=== PATIENT | male | born 1935 | race Caucasian/White ===

== ENCOUNTER 2016-11-29 08:16 | Inpatient (IN) ==
--- NOTE | 2016-11-26 23:23 | Discharge Summary ---
<Hailey Licea Ramos - Last Filed: 11/26/16 23:19> Date of Encounter: 11/26/16 - Discharge Diagnosis (1) Status post total replacement of right shoulder Priority: Primary Status: Acute (2) Rotator cuff tear arthropathy of right shoulder Priority: Primary Status: Acute (3) HTN (hypertension) Priority: Secondary Status: Chronic Qualifiers: Hypertension type: essential hypertension (4) HLD (hyperlipidemia) Priority: Secondary Status: Chronic Qualifiers: Hyperlipidemia type: pure hypercholesterolemia Qualified Code(s): E78.00 - Pure hypercholesterolemia, unspecified; E78.0 - Pure hypercholesterolemia (5) Obesity Priority: Secondary Status: Chronic Qualifiers: Obesity type: due to excess calories Obesity classification: unspecified obesity classification Serious obesity comorbidity presence: without serious comorbidity Qualified Code(s): E66.09 - Other obesity due to excess calories (6) History of prostate cancer Priority: Secondary Status: Chronic (7) Atrial fibrillation Priority: Secondary Status: Chronic Qualifiers: Atrial fibrillation type: chronic Qualified Code(s): I48.2 - Chronic atrial fibrillation - Discharge Medications Home Medications: Amlodipine Besylate 10 mg PO DAILY 11/29/16 [History] Atorvastatin [Lipitor] 10 mg PO HS 11/29/16 [History] Calcium Carbonate/Vitamin D3 [Calcium 600-Vit D3 400 Tablet] 1 tab PO DAILY [History] Metoprolol XL (24 HR) Succ [Toprol XL] 25 mg PO DAILY 11/29/16 [History] Multivit-Min/FA/Lycopen/Lutein [Centrum Silver Men Tablet] 1 tab PO DAILY [History] [place]-3/Dha/Epa/Fish Oil [Fish Oil 1,000 mg Softgel] 1 cap PO DAILY 11/29/16 [ History] hydroCHLOROthiazide [Hydrochlorothiazide] 25 mg PO DAILY 11/29/16 [History] Allergies/Adverse Reactions: Allergies aspirin Allergy (Verified 11/23/16 10:12) Swelling of Lip/Tongue/Throat Primary care physician: Luis Antonio Alston DO - Patient Status Disposition: Home, Self-Care Condition: Good - Discharge Instructions Follow Up With: Luis Antonio Alston DO [Primary Care Provider] - - Hospital Course Hospital course: Mr. White is a 81 year old male - Time Spent with Patient Total time spent providing and/or coordinating discharge services: <Hector Birminghamh - Last Filed: 11/30/16 08:36> Date of Encounter: 11/30/16 Time of Encounter: 08:36 - Discharge Diagnosis (1) Rotator cuff tear arthropathy of right shoulder Priority: Primary Status: Chronic (2) HTN (hypertension) Status: Chronic Qualifiers: Hypertension type: unspecified secondary hypertension Qualified Code(s): I15.9 - Secondary hypertension, unspecified; I15 - Secondary hypertension (3) HLD (hyperlipidemia) Priority: Secondary Status: Chronic Qualifiers: Hyperlipidemia type: pure hypercholesterolemia Qualified Code(s): E78.00 - Pure hypercholesterolemia, unspecified; E78.0 - Pure hypercholesterolemia (4) Obesity Priority: Secondary Status: Chronic Qualifiers: Obesity type: due to excess calories Obesity classification: unspecified obesity classification Serious obesity comorbidity presence: without serious comorbidity Qualified Code(s): E66.09 - Other obesity due to excess calories (5) History of prostate cancer Priority: Secondary Status: Chronic (6) Atrial fibrillation Priority: Secondary Status: Chronic Qualifiers: Atrial fibrillation type: chronic Qualified Code(s): I48.2 - Chronic atrial fibrillation (7) Status post total replacement of right shoulder Priority: Primary Status: Acute Primary care physician: Luis Antonio Alston DO - Patient Status Functional capacity at discharge: independent ambulation Overall status at discharge: patient is progressing back to baseline - Hospital Course Hospital course: Mr. White is a 81 year old male Status post right total shoulder replacement. The patient had an uneventful postoperative course. They received antibiotics and physical therapy and were discharged in stable condition. There will follow -up in the office in 2 weeks. - Time Spent with Patient Total time spent providing and/or coordinating discharge services:
--- NOTE | 2016-11-29 08:36 | History & Physical Report ---
Date of Encounter: 11/29/16 Time of Encounter: 08:35 24 Hour HP Update - Instructions Instructions: If the History and Physical is less than 30 days old and was completed prior to A.M. admission and or procedure and has NOT been updated on calendar day of procedure please complete this update prior to performing procedure. - Update Patient reports changes in Medical Condition: No Changes in examination, assessment, or condition: No Changes in Medication: No Preop tests/diagnostics Reviewed: Yes Surgery Remains Indicated: Yes Consent for Planned Operative Procedure(s) Verified: Yes - Pre-Operative Checklist Preoperative Checklist Indicated: No Prophylactic Antibiotic Ordered: Yes Is VTE Prophylaxis Indicated?: Yes
[2016-11-29] MEDS ORDERED: CeFAZolin Pre 2,000 MG/100 ML 2,000 MG/100 ML BAG IVPB ONE (08:43)
[2016-11-29] MEDS ORDERED: Ringers Solution, Lactated 1,000 ML IVC SCH (08:45)
[2016-11-29] MEDS ORDERED: *HR* FentaNYL (PF) 100 MCG/2 ML VIAL ONE (09:17)
--- NOTE | 2016-11-29 09:17 | Anesthesia Evaluation PreOp ---
Date of Encounter: 11/29/16 Time of Encounter: 09:14 - Past History Planned Operation: Right Total Shoulder Cardiac History: HTN, Arrhythmia (A-Fib) Pulmonary History: Denies Any Significant HX WATERPROOF MATERIAL FOLDER History: Denies Any Significant HX Other Medical History: Other (prostate CA S/P XRT) Anesthesia History: No Prior Anesthetic Complications, Past Anesthesia Alcohol Use: occasionally Drug use: none Medications and Allergies Amlodipine Besylate 10 mg PO DAILY 11/29/16 [History] Atorvastatin [Lipitor] 10 mg PO HS 11/29/16 [History] Calcium Carbonate/Vitamin D3 [Calcium 600-Vit D3 400 Tablet] 1 tab PO DAILY [History] Metoprolol XL (24 HR) Succ [Toprol XL] 25 mg PO DAILY 11/29/16 [History] Multivit-Min/FA/Lycopen/Lutein [Centrum Silver Men Tablet] 1 tab PO DAILY [History] [place]-3/Dha/Epa/Fish Oil [Fish Oil 1,000 mg Softgel] 1 cap PO DAILY 11/29/16 [ History] hydroCHLOROthiazide [Hydrochlorothiazide] 25 mg PO DAILY 11/29/16 [History] Allergies aspirin Allergy (Verified 11/23/16 10:12) Swelling of Lip/Tongue/Throat - Meds/Allergy Pre-op Review Medications Reviewed: Yes Allergies Reviewed: Yes Beta Blockers on Current Med List: Yes If Beta Blockers taken, Date/Time (Last Dose taken): 11/29/2016 at 0630 Anesthesia Results - Labs Laboratory Tests 11/23/16 11/23/16 11/23/16 10:19 10:19 10:19 WBC 8.1 Hgb 14.9 Hct 45.1 Plt Count 250 PT 11.3 INR 1.0 APTT 28.9 Sodium 142 Potassium 3.9 BUN 13 Creatinine 0.94 - Imaging EKG: report reviewed (10/17/2016 ATRIAL FIBRILLATION RIGHT BUNDLE BRANCH BLOCK ST DEPRESSION, CONSIDER SUBENDOCARDIAL INJURY) Additional studies: 11/09/2016 Stress Impression: Patient was in atrial fibrillation throughout the exam. Gated LVEF = 67%. Perfusion imaging was negative for ischemia or infarct. 11/02/2016 Echo Impressions: LVEF 60%. Normal LV chamber size, wall thickness and function. Indeterminate diastolic function. Normal right ventricular size and function. Mild mitral regurgitation. Mild aortic regurgitation. Mild tricuspid regurgitation. No pulmonary hypertension. Anesthesia Exam O2 Sat Height 1.69 m Height 1.69 m Height 1.69 m Weight 102.965 kg Weight 102.965 kg Weight 102.965 kg O2 Sat by Pulse Oximetry 97 Vital Signs Temp Pulse Resp BP Pulse Ox 98.3 F 88 18 126/78 97 11/29/16 08:34 11/29/16 08:34 11/29/16 08:34 11/29/16 08:34 11/29/16 08:34 Height: 5'6.5" Weight: 227 lbs NPO (# of Hours): 8 Pain Scale: 4 (right shoulder) Pain Scale Used: Numeric (1 - 10) - HEENT Pupil (Motor): EOMI Mallampati: II Teeth: Normal, Missing Denture Type: Upper: Partial, Lower: Partial Oral Opening: Greater than 3 - WATERPROOF MATERIAL FOLDER LOC: Oriented WATERPROOF MATERIAL FOLDER Motor: Normal RUE, Normal LUE, Normal RLE, Normal LLE, Normal Face WATERPROOF MATERIAL FOLDER Sensory: Normal: RUE, LUE, RLE, LLE, Face - Cardiac Rhythm: Irregular Murmur: None - Pulmonary Breath Sounds: bilateral Clear Respiratory Effort: Symmetrical Anesthesia Assess/Plan ASA Score: 3 Modified Claudy Scale for Level of Consciousness: Cooperative, oriented, and tranquil Anesthetic Plan: General, Regional Monitoring Plan: Standard Monitors Recovery Plan: PACU
[2016-11-29] MEDS ORDERED: *HR* Propofol 200 MG/20 ML VIAL IVP ONE (09:18)
[2016-11-29] MEDS ORDERED: *HR* Midazolam HCl 2 MG/2 ML VIAL ONE (09:18)
[2016-11-29] MEDS ORDERED: *HR* Succinylcholine 200 MG/10 ML VIAL IVP ONE (09:19)
[2016-11-29] MEDS ORDERED: Lidocaine -MPF 2% 2 ML VIAL ONE (09:19)
[2016-11-29] MEDS ORDERED: ROPIVACAINE HCL/PF 0.5% 30 ML VIAL ONE (09:57)
[2016-11-29] MEDS ORDERED: Bupivacaine/Clonidine Syringe 1 EACH SYRINGE ONE (10:06)
--- NOTE | 2016-11-29 10:11 | Anesthesia Procedures ---
Date of Encounter: 11/29/16 Time of Encounter: 10:09 Procedures: Anesthesia - Nerve Block Procedure Date: 11/29/16 Time: 10:09 Allergies/Adv Reactions: asa Pre-op Diagnosis: r shoulder arthritis Surgical Procedure: r total shoulder Checklist: Correct Patient Identifier Correct side: Right Blood Thinner: No Monitor Applied: EKG, BP, Pulse Oximetry Supplemental Oxygen via Nasal Cannula (L/min): 3 Sedation: Versed (mg): 2 Indication: Post Op Analgesia Pre-op Neuro Deficits: No Block Type: Supraclavicular Catheter placed: No Sterile Technique: Yes Ultrasound used: Yes Anatomy identified: Yes Visual spread of Local: Yes Neuro Stimulation: No Blood on Needle Aspiration: No Smooth Injection of Local: Yes Pain with Injection of Local: No Prep: Chlorhexadine Needle: 22 x 50 mm Stimuplex Local: 0.25% Bupivicaine w/Clonidine 20 mcg/cc, Ropivacaine (0.5% 30cc) Volume (cc): total 45 Number of Attempts: 1 Complications: None/effective block Vitals: Vital Signs/O2 Sat, Most Current Temp Pulse Resp BP Pulse Ox 98.3 F 82 16 118/79 96 11/29/16 08:34 11/29/16 09:54 11/29/16 09:54 11/29/16 09:54 11/29/16 09:54 Comments: aseptic, tolerated well, VSS
[2016-11-29] MEDS ORDERED: Dexamethasone 4 MG/ML VIAL ONE (11:01)
[2016-11-29] MEDS ORDERED: Ondansetron 4 MG/2 ML VIAL ONE (11:01)
[2016-11-29] MEDS ORDERED: Ondansetron 4 MG/2 ML VIAL IVP PRN ×2 (11:08→12:48)
[2016-11-29] MEDS ORDERED: *HR* HYDROmorphone (PF) 1 MG/ML SYRINGE IVP PRN ×2 (11:08→12:48)
--- NOTE | 2016-11-29 11:22 | Orthopedic Operative Note ---
Date of procedure: 11/29/16 Pre-op diagnosis: Right shoulder cuff tear arthropathy Post-op diagnosis: same Procedure: Procedure: Total Shoulder Replacment Reverse, right Estimated blood loss: 100 cc Hardware: Metal and polyethylene replacement: Arthrex large glenoid baseplate, 2 4.5 screws. 1 6.5 screw, 42+4 glenosphere, 11 humeral stem, poly insert 6 Exam Under anesthesia: Full motion of instability Procedural Notes: Irreparable tear supraspinatus, subcutaneous cyst. Grade 4 arthritic changes humeral head Operative procedure: The patient was brought to the operating room and placed on the operating room table. After general anesthesia was administered the operative shoulder was examined. Findings were noted. The patient was placed in the modified beachchair position. All pressure points were padded appropriately. And the head was stabilized in the neutral position. The operative extremity was prepped and draped in the sterile surgical fashion. The patient received IV antibiotics prior to skin incision. A standard deltopectoral approach was made to the operative shoulder. Incision was made to the skin and subcutaneous tissue,hemo stasis was obtained with Bovie cautery. Using careful blunt dissection the cephalic vein was identified and mobilized medially. The subcutaneous is was evacuated with a hemostat consistent with joint fluid. The deltopectoral interval was developed and the clavipectoral fascia was incised. The subscap was released off the lesser tuberosity and tagged with #2 FiberWire suture the subscap was irreparable. The humerus was dislocated patient noted to have irreparable tear supraspinatus tendon, and the humeral cut was made along the anatomic neck. Patient noted to have grade 4 arthritic changes humeral head. Anterior and posterior Bankart retractors were placed to expose the glenoid. The glenoid guide was seated and the centering hole was made. It was reamed with the appropriate reamer. The large baseplate was seated and secured with (2) 4.5 screws and one 6.5 screw. The baseplate was irrigated and dried and the 42+4 Glenosphere was seated and secured with the Mar taper. The Mar taper was tested and found to be secure the humerus was redislocated and prepared with the diaphyseal reamers, followed by a broaching process up to the appropriate size 11 in the patient's anatomic version. The metaphyseal reamer was then utilized. Trial reduction found the shoulder to be relocatable. Trial components were removed. The appropriate 11 stem was impacted in place in the patient's anatomic version. Trial reduction found the shoulder to be relocatable and stable with the appropriate 6 Trial component was removed and the real implant was seated and secured the shoulder was reduced. The shoulder had excellent motion and excellent stability and no evidence of dislocation. The deep tissue was irrigated with pulse irrigation. The PA closed the shoulder. The deltopectoral interval was closed with a running #1 PDS suture, subcutaneous tissue was irrigated and closed with 0 PDS suture, the skin was closed with Dermabond. The patient was placed in a sterile dressing, abduction brace and extubated. The patient was then transferred to the recovery room in stable condition. Anesthesia: DANITZA Surgeon: Hector Birmingham Dx Board Operator: Hailey Licea Condition: stable Disposition: PACU
[2016-11-29 12:05] LABS: Hematocrit 43.6 % (37.5-50.1)
--- NOTE | 2016-11-29 12:11 | Anesthesia Evaluation Post Op ---
Date of Encounter: 11/29/16 Time of Encounter: 12:10 - Vital Signs Vital Signs: Vital Signs/O2 Sat, Most Current Temp Pulse Resp BP Pulse Ox 98.1 F 73 16 117/91 95 11/29/16 11:43 11/29/16 12:03 11/29/16 12:03 11/29/16 12:03 11/29/16 12:03 - Lungs Lungs: Clear Ascult./Percussion - Airway Airway: Non-obstructed - Cardiovascular Regular Rate - Mental Status Mental Status: Alert & Oriented, Answers Appropriately - Pain Pain Scale: 0 Pain Scale used: Numeric (1 - 10) - Nausea Vomiting Nausea Vomiting: Not Present - Hydration Hydration: Ice chips, Has not voided - Discharge PostOp Status: Transfer Patient to floor
[2016-11-29] MEDS ORDERED: Sennosides 8.6 MG TABLET PO PRN (12:48)
[2016-11-29] MEDS ORDERED: MOM Conc 10 ML UD.LIQ PO PRN (12:48)
[2016-11-29] MEDS ORDERED: Temazepam 15 MG CAPSULE PO PRN (12:48)
[2016-11-29] MEDS ORDERED: *HR* OxyCODONE Immed Rel 5 MG TABLET PO PRN (12:48)
[2016-11-29] MEDS ORDERED: Naloxone 0.4 MG/ML INJ IVP PRN (12:48)
[2016-11-29] MEDS: Ringers Solution, Lactated 1,000 ML IVC SCH ×2 (13:10→23:59)
[2016-11-29] MEDS: ceFAZolin 2,000 MG in D5% in Water 100 ML IVPB SCH ×2 (15:56→23:56)
[2016-11-29] MEDS ORDERED: *HR* Enoxaparin 30 MG/0.3 ML SYRINGE SQ SCH (18:00)
[2016-11-29] MEDS: *HR* Enoxaparin 30 MG/0.3 ML SYRINGE SQ SCH (18:20)
[2016-11-29] MEDS: *HR* OxyCODONE Immed Rel 5 MG TABLET PO PRN (23:55)
[2016-11-30 02:35] LABS: Hematocrit 43.6 % (37.5-50.1)
[2016-11-30] MEDS: *HR* Enoxaparin 30 MG/0.3 ML SYRINGE SQ SCH (06:13)
[2016-11-30] MEDS: *HR* OxyCODONE Immed Rel 5 MG TABLET PO PRN (06:15)
[2016-11-30 07:09] VITALS: BP 137/83
--- NOTE | 2016-11-30 08:37 | Orthopedics Progress Note ---
Date of Encounter: 11/30/16 Time of Encounter: 08:37 - Assessment and Plan (1) Rotator cuff tear arthropathy of right shoulder Current Visit: No Status: Chronic (2) HTN (hypertension) Current Visit: No Status: Chronic Qualifiers: Hypertension type: unspecified secondary hypertension Qualified Code(s): I15.9 - Secondary hypertension, unspecified; I15 - Secondary hypertension (3) HLD (hyperlipidemia) Current Visit: No Status: Chronic Qualifiers: Hyperlipidemia type: pure hypercholesterolemia Qualified Code(s): E78.00 - Pure hypercholesterolemia, unspecified; E78.0 - Pure hypercholesterolemia (4) Obesity Current Visit: No Status: Chronic Qualifiers: Obesity type: due to excess calories Obesity classification: unspecified obesity classification Serious obesity comorbidity presence: without serious comorbidity Qualified Code(s): E66.09 - Other obesity due to excess calories (5) History of prostate cancer Current Visit: No Status: Chronic (6) Atrial fibrillation Current Visit: Yes Status: Chronic Qualifiers: Atrial fibrillation type: chronic Qualified Code(s): I48.2 - Chronic atrial fibrillation (7) Status post total replacement of right shoulder Current Visit: Yes Status: Acute Subjective Interval history: Patient was seen this morning doing well without complaints. Afebrile vital signs stable. Operative extremity: Neurovascularly intact Dressing clean dry and intact Calves nontender Assessment and plan: Continue with postoperative care Hematocrit 43 discharged today Objective Vital signs: Vital Signs Temp Pulse Resp BP Pulse Ox 11/30/16 06:48 98.7 F 84 16 137/83 95 11/30/16 05:17 99.0 F 80 16 133/79 93 11/30/16 00:00 98.6 F 92 16 130/82 92 11/29/16 20:00 97.9 F 105 18 138/82 95 11/29/16 15:41 98.5 F 88 17 115/72 96 11/29/16 14:33 98.5 F 79 17 115/76 96 11/29/16 13:34 98.4 F 75 16 114/74 94 11/29/16 13:05 97.7 F 76 16 111/74 94 11/29/16 12:32 98.1 F 76 18 131/85 93 11/29/16 12:30 98.1 F 76 18 131/85 93 11/29/16 12:13 98.2 F 78 16 117/70 94 11/29/16 12:03 73 16 117/91 95 11/29/16 11:53 69 16 129/97 94 11/29/16 11:43 98.1 F 100 16 133/80 95 11/29/16 10:28 79 16 115/82 97 11/29/16 10:20 78 17 119/82 96 11/29/16 10:11 81 16 124/78 97 11/29/16 09:54 82 16 118/79 96 Intake and Output 11/29/16 11/30/16 11/30/16 23:59 07:59 15:59 Intake Total 963 / 963 Output Total 150 / 150 300 / 300 Balance 813 / 813 -300 / -300 Intake: IV Fluids 963 / 963 Lactated Ringers 1,000 ML 863 / 863 @ 75 mls/hr IVC .[id number] MARIO Rx#:[id number] Ancef 2,000 MG In 100 / 100 Dextrose 5% 100 ML @ 200 mls/hr IVPB Q8HR MARIO Rx#: [id number] Output: Urine 150 / 150 300 / 300 Other: # Voids 1 - Labs CBC & BMP: 11/30/16 01:25 - VTE Documentation of Mechanical Device: Venous foot pump, device Consult Discharge Plan - Plan Referrals: Luis Antonio Alston DO [Primary Care Provider] -
[2016-11-30] MEDS ORDERED: Metoprolol XL (24 HR) Succ 25 MG TAB.ER.24H PO SCH (09:00)
[2016-11-30] MEDS ORDERED: CALCIUM CARBONATE PO SCH (09:00)
[2016-11-30] MEDS ORDERED: VITAMIN D3 PO SCH (09:00)
[2016-11-30] MEDS ORDERED: hydroCHLOROthiazide 25 MG TABLET PO SCH (09:00)
[2016-11-30] MEDS ORDERED: (Omega-3/Dha/Epa/Fish Oil [Fish Oil 1,000 Mg Softgel] PO SCH (09:00)
[2016-11-30] MEDS ORDERED: Multivit/Ca/Min/Fe/FA 1 TAB TABLET PO SCH (09:00)
[2016-11-30] MEDS ORDERED: amLODIPine 5 MG TABLET PO SCH (09:00)
== END 2016-11-30 10:35 | disposition home or self-care (01) | DRG 483 ==
LOC: SAMDAY 08:16 → 3NENU 12:26
PROVIDERS: ADMIT Orthopaedic Surgery; ATTEND Orthopaedic Surgery